=== PATIENT | male | born 1995 | race Caucasian/White ===

== ENCOUNTER 2016-07-31 06:32 | Emergency (ER) ==
[2016-07-31] MEDS ORDERED: ZOFRAN ODT PO ONE (06:53)
[2016-07-31] MEDS ORDERED: NORCO-10 PO ONE (06:53)
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
[2016-07-31 08:05] LABS: URINE CULTURE PL NEEDED? NO; URINE SOURCE VOIDED
[2016-07-31 08:19] LABS: UR AMPHETAMINES QUAL NONE DETECTED (NONE DETECT); UR BARBITUATES QUAL NONE DETECTED (NONE DETECT); UR BENZODIAZEPIN QUAL NONE DETECTED (NONE DETECT); UR CANNABINOIDS QUAL NONE DETECTED (NONE DETECT); UR COCAINE QUAL NONE DETECTED (NONE DETECT); UR MDMA QUAL NONE DETECTED (NONE DETECT); UR METHADONE QUAL NONE DETECTED (NONE DETECT); UR METHAMPHETAMINE QUAL NONE DETECTED (NONE DETECT); UR OPIATES QUAL NONE DETECTED (NONE DETECT); UR OXYCODONE QUAL NONE DETECTED (NONE DETECT); UR PCP QUAL NONE DETECTED (NONE DETECT); UR TCA QUAL NONE DETECTED (NONE DETECT)
[2016-07-31 08:26] LABS: BILIRUBIN URINE NEGATIVE (NEGATIVE); BLOOD URINE NEGATIVE (NEGATIVE); CLARITY CLEAR (CLEAR); COLOR YELLOW; GLUCOSE URINE NEGATIVE (NEGATIVE); LEUKOCYTES URINE NEGATIVE (NEGATIVE); NITRITE URINE NEGATIVE (NEGATIVE); PH URINE 6.5; PROTEIN URINE TRACE mg/dL (NEGATIVE); SP GRAVITY URINE 1.015; UROBILINOGEN URINE NORMAL
[2016-07-31 08:27] LABS: URINE EPITHELIAL CELLS <10 /HPF (<10)
--- NOTE | 2016-07-31 08:51 | Diag Imaging Result Document ---
PROCEDURE NAME: RIBS UNILAT W/PA CHEST RIGHT - 07/31/2016 CHEST AND RIGHT RIB DETAIL, FOUR VIEWS: FINDINGS: No contusion or pneumothorax. The mediastinum is not widened. No displaced fracture. IMPRESSION: No injury identified.
--- NOTE | 2016-07-31 08:52 | Diag Imaging Result Document ---
PROCEDURE NAME: SHOULDER-RIGHT - 07/31/2016 RIGHT SHOULDER THREE VIEWS INCLUDING AXILLARY Y VIEW: FINDINGS: No separation at the acromioclavicular joint. No fracture. No dislocation. IMPRESSION: No acute bony injury.
--- NOTE | 2016-07-31 09:12 | Diag Imaging Result Document ---
PROCEDURE NAME: NASAL BONES - 07/31/2016 NASAL BONE, FIVE VIEWS: FINDINGS: No sinus opacification. No air fluid levels. No fracture. IMPRESSION: No acute bony injury.
--- NOTE | 2016-07-31 10:30 | Diag Imaging Result Document ---
PROCEDURE NAME: CT THORAX W/CONTRAST - 07/31/2016 CT CHEST WITH INTRAVENOUS CONTRAST: COMPARISON: No comparison films. FINDINGS: No pleural effusions. No thoracic aortic aneurysm or dissection. No pneumothoraces. No lung contusions. No infiltrates. No compressed vertebra. No fracture. IMPRESSION: No injury. A preliminary report was given at 10:06 a.m..
[2016-07-31 10:36] VITALS: BP 145/84
--- NOTE | 2016-07-31 13:49 | Diag Imaging Result Document ---
PROCEDURE NAME: CERVICAL SPINE COMPLETE - 07/31/2016 CERVICAL SPINE AP AND LATERAL WITH OBLIQUES, SIX VIEWS: FINDINGS: There is mild reversal of the normal curvature. No precervical soft tissue swelling. No subluxation. No other abnormality. IMPRESSION: Reversal of the normal curvature, otherwise negative exam. A CT of the cervical spine is recommended if there is clinical suspicion for a neck fracture.
== END 2016-07-31 10:36 | disposition home or self-care (01) ==
LOC: P.ED 06:32
DX: S20.211A Contusion of right front wall of thorax, initial encounter (principal); S00.83XA Contusion of other part of head, initial encounter; R07.89 Other chest pain; M25.511 Pain in right shoulder; M79.1 Myalgia; V43.53XA Car driver injured in collision with pick-up truck in traffic accident, initial encounter
CPT/HCPCS: 70160; 71101; 71260; 72050; 80305; 81001; Q9967